=== PATIENT | female | born 1960 | race Caucasian/White ===

== ENCOUNTER 2017-10-21 21:26 | Emergency (ER) | payer SELFPAY, BC | END 2017-10-21 22:18 | disposition left against medical advice (07) | LOC: FTE 21:26 → E/R 22:18 | DX: Z53.21 Procedure and treatment not carried out due to patient leaving prior to being seen by health care provider (principal) ==

== ENCOUNTER 2018-01-24 21:53 | Emergency (ER) | payer BC ==
[2018-01-25] MEDS: IPRATROPIUM (NEB) 0.5 MG/2.5 ML AMP NEB (02:50)
[2018-01-25] MEDS: ALBUTEROL 0.5% (NEB) 2.5 MG/0.5 ML AMP INH (02:50)
== END 2018-01-25 05:30 | disposition home or self-care (01) ==
LOC: FTE 21:53
DX: J20.9 Acute bronchitis, unspecified (principal); J44.9 Chronic obstructive pulmonary disease, unspecified; E11.9 Type 2 diabetes mellitus without complications; Z79.84 Long term (current) use of oral hypoglycemic drugs
CPT/HCPCS: 71045; 94664; 99283-25

== ENCOUNTER 2018-02-21 09:53 | Day surgery (SDC) | payer BC ==
[2018-02-21 10:45] LABS: TYPE AND SCREEN 1 1
[2018-02-21] MEDS ORDERED: PROPOFOL 20 ML (13:42)
[2018-02-21] MEDS ORDERED: LIDOCAINE 2% (SDV) 5 ML INJ (13:42)
[2018-02-21] MEDS ORDERED: ALBUTEROL 0.083% (NEB) 2.5 MG/3 ML AMP (14:08)
[2018-02-21] MEDS: ALBUTEROL 0.083% (NEB) 2.5 MG/3 ML AMP HHN (14:22)
[2018-02-21] MEDS: IPRATROPIUM (NEB) 0.5 MG/2.5 ML AMP HHN (14:22)
[2018-02-21] MEDS ORDERED: hydrALAzine 20 MG INJ (15:15)
== END 2018-02-21 15:56 | disposition home or self-care (01) ==
LOC: SDS 09:53
DX: K76.6 Portal hypertension (principal); K31.89 Other diseases of stomach and duodenum; E03.9 Hypothyroidism, unspecified; M06.9 Rheumatoid arthritis, unspecified; J44.9 Chronic obstructive pulmonary disease, unspecified; I10 Essential (primary) hypertension
CPT/HCPCS: 36430; 43235; 82962; 86644; 86850; 86900; 86901; 94664

== ENCOUNTER 2018-07-09 23:29 | Inpatient (IN) | payer BC ==
[2018-07-10 00:37] LABS: ADD MAN DIFF? NO
[2018-07-10 00:43] LABS: WHITE BLOOD COUNT 2.9 10^3/ul (4.8-10.8)
[2018-07-10 00:43] LABS: ABNORMAL IP MESSAGE 1; EOSINOPHILS # 0.1 10^3/ul (0.0-0.5); EOSINOPHILS % 2.4 % (0.0-7.0); HEMATOCRIT 38.5 % (37.0-47.0); MEAN CORPUSCULAR HEMOGLOBIN 31.9 pg (29.0-33.0); MEAN CORPUSCULAR HGB CONC 33.8 g/dl (32.0-37.0); MEAN CORPUSCULAR VOLUME 94.6 fl (82.0-101.0); MONOCYTE # 0.4 10^3/ul (0.3-0.9); MONOCYTES % 12.8 % (0.0-11.0); NEUTROPHIL # 1.5 10^3/ul (1.6-7.5); NEUTROPHILS % 50.5 % (39.0-77.0); PLATELET COUNT 52 10^3/UL (140-415); RED BLOOD COUNT 4.07 10^6/ul (4.20-5.40); RED CELL DISTRIBUTION WIDTH 15.2 % (11.5-14.5)
[2018-07-10] MEDS: LIDOCAINE/MYLANTA 40 ML BTL PO (00:44)
[2018-07-10] MEDS: ONDANSETRON 4 MG INJ IV ×2 (00:44→01:44)
[2018-07-10] MEDS: LACTATED RINGER'S 1,000 ML IV (00:45)
[2018-07-10] MEDS: morphine 4 MG/ML VIAL IV (00:45)
[2018-07-10 00:53] LABS: POSITIVE DIFF @See below
[2018-07-10 01:03] LABS: ALANINE AMINOTRANSFERASE 58 IU/L (13-69); ALBUMIN 2.5 g/dl (3.3-4.9); ALBUMIN/GLOBULIN RATIO 0.54; ALKALINE PHOSPHATASE 217 IU/L (42-121); ANION GAP 8 (8-16); ASPARTATE AMINO TRANSFERASE 117 IU/L (15-46); BILIRUBIN,INDIRECT 2.3 mg/dl (0-1.1); BILIRUBIN,TOTAL 2.3 mg/dl (0.2-1.3); BLOOD UREA NITROGEN 7 mg/dl (7-20); CALCIUM 8.3 mg/dl (8.4-10.2); CARBON DIOXIDE 26 mmol/L (21-31); CHLORIDE 108 mmol/L (97-110); GLUCOSE 129 mg/dl (70-220); LIPASE 244 U/L (23-300); SODIUM 138 mmol/L (135-144); TOTAL PROTEIN 7.1 g/dl (6.1-8.1)
[2018-07-10 01:15] LABS: TROPONIN-I < 0.012 ng/ml (0.000-0.120)
[2018-07-10] MEDS: METOCLOPRAMIDE 10 MG INJ IV (01:43)
[2018-07-10] MEDS ORDERED: ACETAMINOPHEN 325 MG TAB PO ×2 (04:30→09:30)
[2018-07-10] MEDS ORDERED: ONDANSETRON 4 MG INJ IV ×2 (04:30→09:30)
[2018-07-10] MEDS ORDERED: morphine 2 MG INJ IV (09:30)
[2018-07-10] MEDS ORDERED: GUAIFENESIN/DM 5ML CUP PO (09:30)
[2018-07-10] MEDS ORDERED: ALBUTEROL HFA 8 GM INHALER INH (09:30)
[2018-07-10] MEDS ORDERED: traMADol 50 MG TAB PO (09:30)
[2018-07-10] MEDS ORDERED: BISACODYL 10 MG SUPP PR (09:30)
[2018-07-10] MEDS ORDERED: METOCLOPRAMIDE 10 MG INJ IV (09:30)
[2018-07-10] MEDS ORDERED: NACL 0.9% 3 ML SYG IV (09:30)
[2018-07-10] MEDS ORDERED: DOCUSATE SODIUM 100 MG CAP PO (09:30)
[2018-07-10] MEDS ORDERED: MAGNESIUM HYDROXIDE 30ML CUP PO (09:30)
[2018-07-10 10:18] LABS: INR 1.46; PT RATIO 1.4
[2018-07-10 10:19] LABS: PARTIAL THROMBOPLASTIN TIME 44.3 Sec (23.0-35.0)
[2018-07-10] MEDS ORDERED: GLUCOSE GEL 15 GRAM TUBE PO ×2 (10:30)
[2018-07-10] MEDS ORDERED: DEXTROSE 50% 50 ML SYRINGE IV ×2 (10:30)
[2018-07-10] MEDS ORDERED: GLUCAGON 1 MG INJ IM (10:30)
[2018-07-10] MEDS ORDERED: GLUCOSE GEL 15 GRAM TUBE BUCCAL (10:30)
[2018-07-10] MEDS: SOD CHLORIDE 0.9% 1,000 ML IV ×3 (11:22→23:20)
[2018-07-10] MEDS: INSULIN ASPART [NOVOLOG] 3 ML PEN SC ×3 (12:00→20:40)
[2018-07-10] MEDS: PHYTONADIONE (1 MG/ML PO SYG) PO (12:37)
[2018-07-10] MEDS: GABAPENTIN 300 MG CAP PO ×2 (12:37→20:41)
[2018-07-10] MEDS: LORATADINE 10 MG TAB PO (12:37)
[2018-07-10 12:47] LABS: FREE T4 (FREE THYROXINE) 1.28 ng/dl (0.64-1.79)
[2018-07-10] MEDS: HYDROXYCHLOROQUINE 200 MG TAB PO (20:41)
[2018-07-10] MEDS: AMITRIPTYLINE 10 MG TAB PO (20:41)
[2018-07-11 06:14] LABS: ABNORMAL IP MESSAGE 1; HEMATOCRIT 38.1 % (37.0-47.0); HEMOGLOBIN 12.3 g/dl (12.0-16.0); MEAN CORPUSCULAR HEMOGLOBIN 31.2 pg (29.0-33.0); MEAN CORPUSCULAR HGB CONC 32.3 g/dl (32.0-37.0); MEAN CORPUSCULAR VOLUME 96.7 fl (82.0-101.0); MEAN PLATELET VOLUME 11.3 fl (7.4-10.4); PLATELET COUNT 37 10^3/UL (140-415); RED BLOOD COUNT 3.94 10^6/ul (4.20-5.40); RED CELL DISTRIBUTION WIDTH 15.4 % (11.5-14.5)
[2018-07-11 06:14] LABS: WHITE BLOOD COUNT 1.8 10^3/ul (4.8-10.8)
[2018-07-11] MEDS: LEVOTHYROXINE 112 MCG TAB PO (06:17)
[2018-07-11] MEDS: PANTOPRAZOLE (EC) 40 MG TAB PO (06:17)
[2018-07-11 06:20] LABS: POSITIVE DIFF @See below
[2018-07-11 06:21] LABS: ADD MAN DIFF? YES; PATH REVIEW? YES
[2018-07-11 06:34] LABS: ALANINE AMINOTRANSFERASE 53 IU/L (13-69); ALBUMIN 2.2 g/dl (3.3-4.9); ALBUMIN/GLOBULIN RATIO 0.53; ALKALINE PHOSPHATASE 147 IU/L (42-121); ANION GAP 8 (8-16); ASPARTATE AMINO TRANSFERASE 100 IU/L (15-46); BILIRUBIN,INDIRECT 2.7 mg/dl (0-1.1); BILIRUBIN,TOTAL 2.7 mg/dl (0.2-1.3); BLOOD UREA NITROGEN 7 mg/dl (7-20); CALCIUM 7.5 mg/dl (8.4-10.2); CARBON DIOXIDE 25 mmol/L (21-31); CHLORIDE 113 mmol/L (97-110); CREATININE 0.68 mg/dl (0.44-1.00); GLUCOSE 85 mg/dl (70-220); MAGNESIUM 1.8 mg/dl (1.7-2.5); PHOSPHORUS 3.3 mg/dl (2.5-4.9); POTASSIUM 3.8 mmol/L (3.5-5.1); SODIUM 142 mmol/L (135-144); TOTAL PROTEIN 6.3 g/dl (6.1-8.1)
[2018-07-11 06:55] LABS: HEMOGLOBIN A1C 5.6 % (0-5.9)
[2018-07-11 07:02] LABS: ANISOCYTOSIS 2+ (0-0); BAND NEUTROPHILS #M 0.1 10^3/ul (0.0-0.6); BAND NEUTROPHILS % (M) 6 % (0-4); EOSINOPHILS % (M) 6 % (0-7); LYMPHOCYTES #M 0.4 10^3/ul (0.8-2.9); LYMPHOCYTES % (M) 27 % (15-51); MONOCYTES % (M) 5 % (0-11); PLATELET ESTIMATE SIG DECREASED; RBC MORPHOLOGY COMMENT @See below; SEGMENTED NEUTROPHILS (M) % 56 % (39-77); SMUDGE%M 22 % (0-0); WBC MORPHOLOGY COMMENT @See below
[2018-07-11] MEDS: INSULIN ASPART [NOVOLOG] 3 ML PEN SC (08:00)
[2018-07-11] MEDS: HYDROXYCHLOROQUINE 200 MG TAB PO (08:08)
[2018-07-11] MEDS: CHOLECALCIFEROL 1,000 UNIT TAB PO (08:08)
[2018-07-11] MEDS: BENAZEPRIL 20 MG TAB PO (08:08)
[2018-07-11] MEDS: LORATADINE 10 MG TAB PO (08:08)
[2018-07-11] MEDS: GABAPENTIN 300 MG CAP PO (08:08)
[2018-07-11] MEDS: FLUOXETINE 20 MG CAP PO (08:08)
[2018-07-11] MEDS: SOD CHLORIDE 0.9% 1,000 ML IV (09:24)
== END 2018-07-11 11:10 | disposition home or self-care (01) | DRG 392 ==
LOC: E/R 23:29 → PP2 07-10 04:41
DX: R19.09 Other intra-abdominal and pelvic swelling, mass and lump (principal); K76.6 Portal hypertension; I85.10 Secondary esophageal varices without bleeding; N93.9 Abnormal uterine and vaginal bleeding, unspecified; N95.9 Unspecified menopausal and perimenopausal disorder; D69.6 Thrombocytopenia, unspecified; F41.9 Anxiety disorder, unspecified; E03.9 Hypothyroidism, unspecified; M32.9 Systemic lupus erythematosus, unspecified; D72.819 Decreased white blood cell count, unspecified; R16.1 Splenomegaly, not elsewhere classified; E11.9 Type 2 diabetes mellitus without complications; K76.0 Fatty (change of) liver, not elsewhere classified; Z90.710 Acquired absence of both cervix and uterus; Z90.722 Acquired absence of ovaries, bilateral
CPT/HCPCS: 36415; 72197; 74176; 74183; 76830; 76856; 80053; 82962; 83036; 83690; 83735; 84100; 84439; 84443; 84484; 85025; 85610; 85730; 86304; 93005; 96374; 96375; 96376; 99285-25

== ENCOUNTER 2018-10-25 05:39 | Emergency (ER) | payer BC ==
[2018-10-25] MEDS ORDERED: LIDOCAINE 1%/EPI (MDV) 50 ML INJ INJ (06:00)
[2018-10-25] MEDS: LIDOCAINE 1%/EPI (1:100,000) (MDV) 20 ML INJ (06:21)
[2018-10-25 06:51] LABS: ADD MAN DIFF? NO
[2018-10-25 06:53] LABS: WHITE BLOOD COUNT 2.7 10^3/ul (4.8-10.8)
[2018-10-25 06:53] LABS: ABNORMAL IP MESSAGE 1; BASOPHILS % 0.4 % (0.0-2.0); EOSINOPHILS # 0.1 10^3/ul (0.0-0.5); EOSINOPHILS % 2.6 % (0.0-7.0); HEMATOCRIT 39.5 % (37.0-47.0); LYMPHOCYTES % 36.8 % (15.0-51.0); MEAN CORPUSCULAR HEMOGLOBIN 31.7 pg (29.0-33.0); MEAN CORPUSCULAR HGB CONC 32.9 g/dl (32.0-37.0); MEAN CORPUSCULAR VOLUME 96.3 fl (82.0-101.0); MEAN PLATELET VOLUME 10.2 fl (7.4-10.4); MONOCYTE # 0.3 10^3/ul (0.3-0.9); MONOCYTES % 10.4 % (0.0-11.0); NEUTROPHIL # 1.3 10^3/ul (1.6-7.5); NEUTROPHILS % 49.1 % (39.0-77.0); RED CELL DISTRIBUTION WIDTH 15.5 % (11.5-14.5)
[2018-10-25 07:12] LABS: INR 1.46; PROTIME 17.8 Sec (11.9-14.9); PT RATIO 1.4
[2018-10-25 07:13] LABS: PARTIAL THROMBOPLASTIN TIME 43.4 Sec (23.0-35.0)
[2018-10-25 08:55] LABS: PLATELET COUNT 40 10^3/UL (140-415); POSITIVE DIFF @See below
== END 2018-10-25 06:59 | disposition home or self-care (01) ==
LOC: E/R 05:39
DX: R23.3 Spontaneous ecchymoses (principal); I10 Essential (primary) hypertension; J44.9 Chronic obstructive pulmonary disease, unspecified; E11.9 Type 2 diabetes mellitus without complications; Z79.84 Long term (current) use of oral hypoglycemic drugs
CPT/HCPCS: 12001; 36415; 85025; 85610; 85730; 99283-25

== ENCOUNTER 2019-01-01 21:13 | Emergency (ER) | payer BC ==
[2019-01-01] MEDS: ACETAMINOPHEN 325 MG TAB PO (22:03)
[2019-01-01] MEDS: CEFTRIAXONE 1 GM/50 ML (PMX) 50 ML IVPB (22:03)
[2019-01-01] MEDS: SODIUM CHLORIDE 0.9% 1L BAG IV* (22:04)
[2019-01-01 22:09] LABS: WHITE BLOOD COUNT 5.1 10^3/ul (4.8-10.8)
[2019-01-01 22:09] LABS: ABNORMAL IP MESSAGE 1; HEMATOCRIT 40.6 % (37.0-47.0); HEMOGLOBIN 13.2 g/dl (12.0-16.0); MEAN CORPUSCULAR HGB CONC 32.5 g/dl (32.0-37.0); MEAN CORPUSCULAR VOLUME 95.3 fl (82.0-101.0); MEAN PLATELET VOLUME 10.5 fl (7.4-10.4); PLATELET COUNT 50 10^3/UL (140-415); RED BLOOD COUNT 4.26 10^6/ul (4.20-5.40); RED CELL DISTRIBUTION WIDTH 16.8 % (11.5-14.5)
[2019-01-01 22:10] LABS: POSITIVE DIFF @See below
[2019-01-01 22:11] LABS: ADD MAN DIFF? YES
[2019-01-01 22:21] LABS: INR 1.52; PROTIME 18.4 Sec (11.9-14.9); PT RATIO 1.4
[2019-01-01 22:22] LABS: PARTIAL THROMBOPLASTIN TIME 43.5 Sec (23.0-35.0)
[2019-01-01 22:24] LABS: ALANINE AMINOTRANSFERASE 34 IU/L (13-69); ALBUMIN 3.1 g/dl (3.3-4.9); ALBUMIN/GLOBULIN RATIO 0.57; ALKALINE PHOSPHATASE 216 IU/L (42-121); ANION GAP 6 (5-13); ASPARTATE AMINO TRANSFERASE 103 IU/L (15-46); BILIRUBIN,INDIRECT 3.8 mg/dl (0-1.1); BILIRUBIN,TOTAL 3.8 mg/dl (0.2-1.3); BLOOD UREA NITROGEN 8 mg/dl (7-20); CALCIUM 8.6 mg/dl (8.4-10.2); CARBON DIOXIDE 22 mmol/L (21-31); CHLORIDE 107 mmol/L (97-110); CREATININE 0.84 mg/dl (0.44-1.00); Estimated GFR > 60 mL/min (>60); GLUCOSE 103 mg/dl (70-220); POTASSIUM 4.2 mmol/L (3.5-5.1); SODIUM 135 mmol/L (135-144); TOTAL PROTEIN 8.5 g/dl (6.1-8.1)
[2019-01-01 22:29] LABS: BAND NEUTROPHILS % (M) 1 % (0-4); LYMPHOCYTES #M 0.4 10^3/ul (0.8-2.9); LYMPHOCYTES % (M) 9 % (15-51); MONOCYTE #M 0.5 10^3/ul (0.3-0.9); MONOCYTES % (M) 10 % (0-11); PLATELET ESTIMATE DECREASED; REACTIVE LYMPHOCYTES #M 0.1 10^3/ul (0.0-0.0); REACTIVE LYMPHOCYTES% (M) 3 % (0-0); SEG NEUT #M 3.9 10^3/ul (1.6-7.5); SEGMENTED NEUTROPHILS (M) % 77 % (39-77); SMUDGE%M 15 % (0-0)
[2019-01-01 22:36] LABS: TROPONIN-I < 0.012 ng/ml (0.000-0.120)
[2019-01-01 22:50] LABS: ADD UMIC YES; UR ASCORBIC ACID 40 mg/dL (NEGATIVE); UR BACTERIA MODERATE /HPF (NONE SEEN); UR BILIRUBIN (Dip) NEGATIVE (NEGATIVE); UR BLOOD (Dip) 3+ mg/dL (NEGATIVE); UR CLARITY CLOUDY (CLEAR); UR COLOR AMBER (YELLOW); UR GLUCOSE (Dip) NEGATIVE (NEGATIVE); UR KETONES (Dip) TRACE mg/dL (NEGATIVE); UR LEUKOCYTE ESTERASE (Dip) 2+ Leu/ul (NEGATIVE); UR MUCUS MODERATE /HPF (NONE SEEN); UR NITRITE (Dip) NEGATIVE (NEGATIVE); UR RBC > 182 /HPF (0-5); UR SPECIFIC GRAVITY (Dip) 1.016 (1.003-1.030); UR TOTAL PROTEIN (Dip) 1+ mg/dl (NEGATIVE); UR UROBILINOGEN (Dip) 2+ mg/dL (NEGATIVE); UR WBC > 182 /HPF (0-5)
[2019-01-01] MEDS: KETOROLAC 15 MG INJ IV (23:31)
[2019-01-01] MEDS: AZITHROMYCIN 500MG/NS (PMX) 250 ML IV (23:31)
== END 2019-01-02 01:31 | disposition home or self-care (01) ==
LOC: E/R 01-02 01:31
DX: J18.9 Pneumonia, unspecified organism (principal); N30.00 Acute cystitis without hematuria; I10 Essential (primary) hypertension; E11.9 Type 2 diabetes mellitus without complications; Z79.84 Long term (current) use of oral hypoglycemic drugs
CPT/HCPCS: 71045; 80053; 81001; 84484; 85025; 85610; 85730; 87040; 87086; 87400; 93005; 96374; 96375; 99285-25

== ENCOUNTER 2019-04-01 20:50 | Emergency (ER) | payer MEDICARE, BC ==
[2019-04-02 01:31] LABS: ADD MAN DIFF? NO
[2019-04-02] MEDS: SOD CHLORIDE 0.9% 500 ML IV (01:31)
[2019-04-02] MEDS: ONDANSETRON 4 MG INJ IV (01:31)
[2019-04-02] MEDS: morphine 4 MG/ML VIAL IV (01:31)
[2019-04-02 01:37] LABS: ABNORMAL IP MESSAGE 1; BASOPHILS % 0.3 % (0.0-2.0); EOSINOPHILS # 0.2 10^3/ul (0.0-0.5); EOSINOPHILS % 5.4 % (0.0-7.0); HEMATOCRIT 33.7 % (37.0-47.0); HEMOGLOBIN 10.6 g/dl (12.0-16.0); LYMPHOCYTES % 32.1 % (15.0-51.0); MEAN CORPUSCULAR HEMOGLOBIN 30.1 pg (29.0-33.0); MEAN CORPUSCULAR HGB CONC 31.5 g/dl (32.0-37.0); MEAN CORPUSCULAR VOLUME 95.7 fl (82.0-101.0); MONOCYTE # 0.4 10^3/ul (0.3-0.9); MONOCYTES % 12.5 % (0.0-11.0); NEUTROPHIL # 1.5 10^3/ul (1.6-7.5); NEUTROPHILS % 49.4 % (39.0-77.0); PLATELET COUNT 74 10^3/UL (140-415); RED BLOOD COUNT 3.52 10^6/ul (4.20-5.40); RED CELL DISTRIBUTION WIDTH 16.3 % (11.5-14.5)
[2019-04-02 01:38] LABS: POSITIVE DIFF @See below
[2019-04-02 01:41] LABS: ADD UMIC YES; UR ASCORBIC ACID NEGATIVE (NEGATIVE); UR BACTERIA FEW /HPF (NONE SEEN); UR BILIRUBIN (Dip) NEGATIVE (NEGATIVE); UR BLOOD (Dip) 3+ mg/dL (NEGATIVE); UR CLARITY CLOUDY (CLEAR); UR COLOR AMBER (YELLOW); UR GLUCOSE (Dip) NEGATIVE (NEGATIVE); UR KETONES (Dip) TRACE mg/dL (NEGATIVE); UR LEUKOCYTE ESTERASE (Dip) 2+ Leu/ul (NEGATIVE); UR MUCUS MANY /HPF (NONE SEEN); UR NITRITE (Dip) NEGATIVE (NEGATIVE); UR RBC > 182 /HPF (0-5); UR SPECIFIC GRAVITY (Dip) 1.028 (1.003-1.030); UR SQUAMOUS EPITHELIAL CELL FEW /HPF (FEW); UR TOTAL PROTEIN (Dip) 1+ mg/dl (NEGATIVE); UR UROBILINOGEN (Dip) 1+ mg/dL (NEGATIVE); UR WBC 97 /HPF (0-5)
[2019-04-02 01:53] LABS: ALANINE AMINOTRANSFERASE 26 IU/L (13-69); ALBUMIN 2.5 g/dl (3.3-4.9); ALBUMIN/GLOBULIN RATIO 0.44; ALKALINE PHOSPHATASE 246 IU/L (42-121); ANION GAP 6 (5-13); ASPARTATE AMINO TRANSFERASE 78 IU/L (15-46); BILIRUBIN,INDIRECT 1.7 mg/dl (0-1.1); BILIRUBIN,TOTAL 1.7 mg/dl (0.2-1.3); BLOOD UREA NITROGEN 13 mg/dl (7-20); CALCIUM 7.9 mg/dl (8.4-10.2); CARBON DIOXIDE 23 mmol/L (21-31); CHLORIDE 112 mmol/L (97-110); Estimated GFR > 60 mL/min (>60); GLUCOSE 96 mg/dl (70-220); LIPASE 201 U/L (23-300); POTASSIUM 3.8 mmol/L (3.5-5.1); SODIUM 141 mmol/L (135-144); TOTAL PROTEIN 8.1 g/dl (6.1-8.1)
[2019-04-02 01:54] LABS: INR 1.54; PROTIME 18.6 Sec (11.9-14.9); PT RATIO 1.5
[2019-04-02 01:55] LABS: PARTIAL THROMBOPLASTIN TIME 40.7 Sec (23.0-35.0)
[2019-04-02] MEDS: CEFTRIAXONE 1 GM/50 ML (PMX) 50 ML IVPB (04:16)
== END 2019-04-02 06:38 | disposition home or self-care (01) ==
LOC: E/R 20:50
DX: R10.9 Unspecified abdominal pain (principal); I10 Essential (primary) hypertension; J44.9 Chronic obstructive pulmonary disease, unspecified
CPT/HCPCS: 36415; 71045; 74176; 80053; 81001; 83690; 85025; 85610; 85730; 96374; 96375; 99285-25